=== PATIENT | female | born 1970 | race African-American/Black ===

== ENCOUNTER 2017-02-19 09:53 | Emergency (ER) | payer BC, MEDICAID ==
[2017-02-19] MEDS ORDERED: Acetaminophen 325 MG Tab PO ONE (11:03)
--- NOTE | 2017-02-19 11:28 | EDM.PDOC ---
ED HPI GENERAL MEDICAL PROBLEM - General Chief Complaint: Back Pain or Injury Stated Complaint: APPROX 8 WKS PG/BACK PAIN Time Seen by Provider: 02/19/17 10:35 Source of Information: Reports: Patient History Limitations: Reports: No Limitations - History of Present Illness INITIAL COMMENTS - FREE TEXT/NARRATIVE: 46 y/o F with chief complaint of low back pain. Started several weeks ago. More severe for past few days so came in to get it checked out. No injury or clear provoking factor. She does a lot of standing at work. Pain is in very low back, in the center and also on the right. Worse with movement. Better with rest. Is throbbing. Moderate severity. Hasn't taken anything for it at home. NO numbness/weakness. No fever or other recent illness. Hasn't seen a doctor for this before. Also notes she hasn't had a menstrual period in 2 months and states a home test was positive. Lower Back Pain Score (Numeric/FACES): 9 - Related Data Allergies Allergy/AdvReac Type Severity Reaction Status Date / Time No Known Allergies Allergy Verified 02/19/17 10:06 Home Meds: Home Meds . [No Known Home Meds] 08/25/13 [History] Past Medical History - Past Health History Medical/Surgical History: Denies Medical/Surgical History [employer] History: Reports: Fibroids Social & Family History - Family History Family Medical History: Noncontributory - Tobacco Use Smoking Status *Q: Never Smoker Second Hand Smoke Exposure: No - Alcohol Use Days Per Week of Alcohol Use: 0 - Recreational Drug Use Recreational Drug Use: No ED ROS GENERAL - Review of Systems Review Of Systems: See Below Constitutional: Denies: Fever Respiratory: Reports: No Symptoms Cardiovascular: Reports: No Symptoms GI/Abdominal: Reports: No Symptoms Musculoskeletal: Reports: Back Pain, Muscle Pain. Denies: Neck Pain Neurological: Denies: Numbness, Weakness ED EXAM,LOWER BACK PAIN/INJURY - Physical Exam Exam: See Below Exam Limited By: No Limitations General Appearance: Alert, WD/WN, No Apparent Distress Eye Exam: Bilateral Eye: Normal Inspection Ears: Normal External Exam Nose: Normal Inspection Throat/Mouth: Normal Inspection, Normal Voice, No Airway Compromise Head: Atraumatic, Normocephalic Neck: Normal Inspection, Supple, Non-Tender, Full Range of Motion Respiratory/Chest: No Respiratory Distress, Lungs Clear, Normal Breath Sounds, Chest Non-Tender Cardiovascular: Normal Peripheral Pulses, Regular Rate, Rhythm, No Edema GI/Abdominal: Soft, Non-Tender, No Distention. No: Rebound Back Exam: Normal Inspection, Paraspinal Tenderness (R low lumbar paraspinal TTP ), Vertebral Tenderness, Other (low lumbar area, no step-offs, skin normal). No : CVA Tenderness (L), CVA Tenderness (R), Decreased Range of Motion Neurological: Alert, Normal Mood/Affect, Normal Dorsiflexion, Normal Plantar Flexion, Normal Gait, No Motor/Sensory Deficits, Oriented x 3 Psychiatric: Normal Affect, Normal Mood Skin Exam: Warm, Dry, Intact, Normal Color, No Rash Course - Vital Signs Last Recorded V/S: Last Vital Signs Temp 36.2 C 02/19/17 10:00 Pulse 77 02/19/17 10:00 Resp 18 02/19/17 10:00 BP 134/92 H 02/19/17 10:00 Pulse Ox 99 02/19/17 10:00 - Orders/Labs/Meds Labs: Laboratory Tests 02/19/17 Range/Units 11:20 HCG, Quant 2.0 mIU/mL Meds: Medications Discontinued Medications Generic Name Dose Route Start Last Admin Trade Name Eduardo PRN Reason Stop Dose Admin Acetaminophen 975 mg 02/19/17 11:03 02/19/17 11:22 Tylenol PO 02/19/17 11:04 975 mg NOW ONE Administration - Re-Assessments/Exams Free Text/Narrative Re-Assessment/Exam: 02/19/17 12:23 Suspect musculoskeletal etiology. No red flag symptoms. HCG negative - we discussed this, suspect she may be entering menopause. Plan = rest, conservative measures, PCP f/u and referral to physical therapy if not improving. Departure - Departure Time of Disposition: 11:24 Disposition: Home, Self-Care 01 Clinical Impression: Low back pain Qualifiers: Chronicity: acute Back pain laterality: right Sciatica presence: without sciatica Qualified Code(s): M54.5 - Low back pain - Discharge Information Instructions: Back Pain in Referrals: PCP,None [Primary Care Provider] - Forms: ED Department Discharge, ED Return to Work/School Form Additional Instructions: 1. Take acetaminophen (Tylenol) as needed for pain according to bottle instructions. Avoid heavy lifting until better. Use heat packs on area of pain. 2. I will call you this afternoon with the results of your blood test 3. Follow up with a primary doctor as needed for further care. Call [phone] if you'd like to follow up with a provider here.
== END 2017-02-19 12:00 | disposition home or self-care (01) ==
LOC: JD.ED 09:53
DX: M54.5 Low back pain (principal)
CPT/HCPCS: 36415; 84702; 99283; A9270; 99282